=== PATIENT | female | born 1960 | race Caucasian/White ===

== ENCOUNTER 2016-06-05 06:52 | Emergency (ER) | payer MEDICAID ==
[2016-06-05 06:59] VITALS: O2SAT 94
--- NOTE | 2016-06-05 07:06 | EDPHY ---
H & P Stated Complaint: inflammed eyes Time Seen by Provider: 06/05/16 07:02 HPI/ROS: CHIEF COMPLAINT: Bilateral conjunctival erythema and discharge HISTORY OF PRESENT ILLNESS: The patient presents to the ED with complaints of bilateral conjunctival erythema and discharge. The patient denies wearing contact lenses. The patient denies any upper respiratory illness. The patient does have a history of asthma. The patient denies any arthralgias or rash. She has no complaints of vaginal discharge or additional acute medical complaints. The patient does report that her asthma is currently well managed and specifically denies shortness of breath or cough. REVIEW OF SYSTEMS: A comprehensive 10 point review of systems is otherwise negative aside from elements mentioned in the history of present illness. Source: Patient Exam Limitations: No limitations - Personal History LMP (Females 10-55): 1-7 Days Ago Current Tetanus/Diphtheria Vaccine: Yes Current Tetanus Diphtheria and Acellular Pertussis (TDAP): Yes - Medical/Surgical History Hx Asthma: Yes Hx Chronic Respiratory Disease: No Hx Diabetes: No Hx Cardiac Disease: No Hx Renal Disease: No Hx Cirrhosis: No Hx Alcoholism: No Hx HIV/AIDS: No Hx Splenectomy or Spleen Trauma: No Other PMH: depression, asthma, pyloric stenosis - Social History Smoking Status: Never smoked - Physical Exam Exam: General Appearance: Alert, no distress Eyes: Bilateral conjunctival injection and discharge right greater than left eye ENT, Mouth: Mucous membranes moist Respiratory: There are no retractions, lungs are clear to auscultation Cardiovascular: Regular rate and rhythm Gastrointestinal: Abdomen is soft and nontender, no masses, bowel sounds normal Neurological: A&O, normal motor function, normal sensory exam, normal cranial nerves Skin: Warm and dry, no rashes Musculoskeletal: Neck is supple nontender Extremities: symmetrical, full range of motion Constitutional: Initial Vital Signs Heart Rate 103 H 06/05/16 06:56 Respiratory Rate 18 06/05/16 06:56 Blood Pressure 147/89 H 06/05/16 06:56 O2 Sat (%) 94 06/05/16 06:56 O2 Delivery Mode Room Air Allergies/Adverse Reactions: No Known Drug Allergies Allergy (Verified 06/05/16 06:55) Home Medications: Medication Instructions Recorded Montelukast Sodium 06/05/16 Medical Decision Making ED Course/Re-evaluation: The patient presents to the ED with likely bacterial conjunctivitis. The patient will be given a prescription for Ocuflox eyedrops to use 5 times a day for the next week. I have asked the patient to return to the ED immediately for any increasing symptoms of pain, redness, decreased vision or other acute complaints. The patient will follow up with our on-call adjunct english instructor for any unimproved symptoms past the next 3-4 days. Departure - Departure Disposition: Home, Routine, Self-Care Clinical Impression: Conjunctivitis Condition: Good Instructions: Conjunctivitis (ED) Additional Instructions: 1. Please apply 1 Ocuflox eye drop to each eye 5 times a day for the next week. 2. Please return to the ED for markedly worsening symptoms or other concerns. 3. Please follow up with the adjunct english instructor you have been referred to for any unimproved symptoms past the next 2-3 days. 4. Please apply warm compress to each eye and keep skin around eyes clean with mild soap and warm water several times daily. Referrals: Lisa Thomas MD [Medical Doctor] - As per Instructions
[2016-06-05] MEDS ORDERED: OFLOXACIN 0.3% SOLN PREPACK OPHT.BTL TAKEHOME ONE (07:10)
[2016-06-05 07:19] VITALS: BP 118/78; PULSE 79; RESP 14; TEMP 97.9
== END 2016-06-05 07:20 | disposition home or self-care (01) ==
DX: H10.9 Unspecified conjunctivitis (principal); J45.909 Unspecified asthma, uncomplicated